=== PATIENT | female | born 1945 | race African-American/Black ===

== ENCOUNTER 2016-06-20 19:13 | Emergency (ER) | payer MEDICARE ==
[~2016-06-20] VITALS: Ht 160 cm; Wt 112.5 kg
[2016-06-20] MEDS ORDERED: KETOROLAC 15 MG/ML VIAL. IV ONE (22:00)
[2016-06-20] MEDS ORDERED: FENTANYL PF 100 MCG/2 ML VIAL. IV ONE (22:00)
[2016-06-20 22:13] LABS: BASO # 0.1 x10^3/uL (0.0-0.2); BASO % 1 % (0-3); EOS % 3 % (0-3); HEMATOCRIT 33.7 % (36.0-47.0); LYMPH # 2.9 x10^3/uL (1.0-4.8); LYMPH % 28 % (24-48); MEAN CORPUSCULAR HEMOGLOBIN 29 pg (25-35); MEAN CORPUSCULAR HGB CONC 33 g/dL (31-37); MEAN CORPUSCULAR VOLUME 88 fL (79-100); MONO % 9 % (0-9); NEUT % 59 % (31-73); PLATELET COUNT 352 x10^3/uL (140-400); RED BLOOD COUNT 3.84 x10^6/uL (3.50-5.40); RED CELL DISTRIBUTION WIDTH 15.6 % (11.5-14.5); WHITE BLOOD COUNT 10.4 x10^3/uL (4.0-11.0)
[2016-06-20 22:30] VITALS: BP 103/58
[2016-06-20 22:31] LABS: CALCIUM 8.7 mg/dL (8.5-10.1); CREATININE 1.6 mg/dL (0.6-1.0); GFR 38.4; POTASSIUM 4.3 mmol/L (3.5-5.1)
[2016-06-20] MEDS ORDERED: CYCL5TAB PO (22:52)
--- NOTE | 2016-06-20 22:52 | PHYS DOC ---
Past Medical History Past Medical History: Arthritis, Diabetes-Type II, Hypertension, Other Additional Past Medical Histor: neuropathy Past Surgical History: No Surgical History Alcohol Use: None Drug Use: None Adult General Chief Complaint Chief Complaint: COUGH HPI HPI Patient is a 71 year old female who presents with family for left upper chest and shoulder pain for the past 2 weeks that started after an episode of cough with post-tussive emesis. States she has intermittent nbnb post-tussive emesis. Pain is achy/burning/tingling and worse with shoulder ROM. She denies other injury, numbness, weakness, headache, dyspnea, diarrhea, f/c, rash, headache. Review of Systems Review of Systems Constitutional: Denies fever or chills [] Eyes: Denies change in visual acuity, redness, or eye pain [] HENT: Denies nasal congestion or sore throat [] Respiratory: Denies shortness of breath [] Cardiovascular: No additional information not addressed in HPI [] GI: Denies abdominal pain, bloody stools or diarrhea [] : Denies dysuria or hematuria [] Musculoskeletal: Denies back pain or joint pain [] Integument: Denies rash or skin lesions [] Neurologic: Denies headache, focal weakness or sensory changes [] Endocrine: Denies polyuria or polydipsia [] Current Medications Current Medications Current Medications Medications (Trade) Dose Ordered Sig/Leyda Start Time Stop Time Status Last Admin Dose Admin Fentanyl Citrate (Fentanyl 2ml Vial) 25 mcg 1X ONCE 06/20/16 22:00 06/20/16 22:01 DC 06/20/16 22:22 25 MCG Ketorolac Tromethamine (Toradol) 10 mg 1X ONCE 06/20/16 22:00 06/20/16 22:01 DC 06/20/16 22:22 10 MG Allergies Allergies Allergies Coded Allergies Type Severity Reaction Last Updated Verified Penicillins Allergy Intermediate Rash 06/20/16 Yes Sulfa (Sulfonamide Antibiotics) Allergy Intermediate Rash 06/20/16 Yes Physical Exam Physical Exam Constitutional: Well developed, well nourished, no acute distress, non-toxic appearance. [] HENT: Normocephalic, atraumatic, bilateral external ears normal, oropharynx moist, no oral exudates, nose normal. [] Eyes: PERRLA, EOMI. [] Neck: Normal range of motion, no tenderness, supple. [] Cardiovascular:Heart rate regular rhythm [] Lungs & Thorax: Bilateral breath sounds clear to auscultation. Tenderness through left upper chest and trapezius muscle and deltoid duplicating symptoms; no palpable or visual abnormality [] Abdomen: Bowel sounds normal, soft, no tenderness. [] Skin: Warm, dry, no erythema, no rash. [] Back: No tenderness, no CVA tenderness. [] Extremities: No tenderness, ROM intact, no edema. Equal radial pulses [] Neurologic: Alert and oriented X 3, normal motor function, normal sensory function, no focal deficits noted. [] Psychologic: Affect normal, judgement normal, mood normal. [] Current Patient Data Vital Signs Vital Signs Date Time Temp Pulse Resp B/P Pulse Ox O2 Delivery O2 Flow Rate FiO2 06/20/16 22:30 62 12 103/58 99 Room Air 06/20/16 19:33 98.2 98.2 Lab Values Laboratory Tests Test 06/20/16 22:00 White Blood Count 10.4x10^3/uL (4.0-11.0) Red Blood Count 3.84x10^6/uL (3.50-5.40) Hemoglobin 11.0g/dL (12.0-15.5) L Hematocrit 33.7% (36.0-47.0) L Mean Corpuscular Volume 88fL (79-100) Mean Corpuscular Hemoglobin 29pg (25-35) Mean Corpuscular Hemoglobin Concent 33g/dL (31-37) Red Cell Distribution Width 15.6% (11.5-14.5) H Platelet Count 352x10^3/uL (140-400) Neutrophils (%) (Auto) 59% (31-73) Lymphocytes (%) (Auto) 28% (24-48) Monocytes (%) (Auto) 9% (0-9) Eosinophils (%) (Auto) 3% (0-3) Basophils (%) (Auto) 1% (0-3) Neutrophils # (Auto) 6.1x10^3uL (1.8-7.7) Lymphocytes # (Auto) 2.9x10^3/uL (1.0-4.8) Monocytes # (Auto) 0.9x10^3/uL (0.0-1.1) Eosinophils # (Auto) 0.3x10^3/uL (0.0-0.7) Basophils # (Auto) 0.1x10^3/uL (0.0-0.2) Sodium Level 138mmol/L (136-145) Potassium Level 4.3mmol/L (3.5-5.1) Chloride Level 102mmol/L (98-107) Carbon Dioxide Level 26mmol/L (21-32) Anion Gap 10 (6-14) Blood Urea Nitrogen 18mg/dL (7-20) Creatinine 1.6mg/dL (0.6-1.0) H Estimated GFR (Cockcroft-Gault) 38.4 Glucose Level 101mg/dL (70-99) H Calcium Level 8.7mg/dL (8.5-10.1) Troponin I Quantitative < 0.017ng/mL (0.000-0.055) Laboratory Tests 06/20/16 22:00 Laboratory Tests 06/20/16 22:00 EKG EKG EKG as interpreted by me as sinus rhythm with first-degree AV block, rate 70, no ST-T changes, P-R 206, QTC 520, no ectopy Radiology/Procedures Radiology/Procedures Chest xray as interpreted by me with no acute cardiopulmonary disease process Course & Med Decision Making Course & Med Decision Making Pertinent Labs and Imaging studies reviewed. (See chart for details) Workup is unremarkable. Discussed symptom control. Return precautions given. She understands and agrees with plan. Dragon Disclaimer Dragon Disclaimer This electronic medical record was generated, in whole or in part, using a voice recognition dictation system. Departure Departure Impression: Primary Impression: Cough Additional Impression: Chest pain Disposition: 01 HOME, SELF-CARE Condition: STABLE Referrals: UNKNOWN PCP NAME (PCP) Patient Instructions: Chest Wall Pain, [id number] Additional Instructions: Take Tylenol or ibuprofen as needed for pain. Take cyclobenzaprine as needed for muscle spasm. Do not drink, drive or operate heavy machinery after taking cyclobenzaprine as it will likely make you sleepy. Follow-up with your primary care doctor within one week. Return for any concerns. Scripts Cyclobenzaprine Hcl 5 Mg Tablet1 Tab PO QHS PRN MUSCLE SPASMS #8 TAB Prov:Rhina PHOENIX MD 06/20/16 Problem Qualifiers Additional Impression: Chest pain Chest pain type: unspecified Qualified Code: R07.9 - Chest pain, unspecified Rhina PHOENIX MD Jun 20, 2016 22:52
--- NOTE | 2016-06-21 00:28 | EKG ---
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
--- NOTE | 2016-06-21 09:01 | RAD ---
Chest, 2 views, 06/20/2016: History: Cough and left-sided pain Comparison is made to a study from 04/21/2016. The heart is at the upper limits of normal in size. The pulmonary vascularity is normal. No pulmonary consolidation is seen. There is no evidence of pleural fluid. Moderate spurring is present in the spine. IMPRESSION: No acute cardiopulmonary abnormality is detected.
== END 2016-06-20 23:03 | disposition home or self-care (01) ==
LOC: ER 19:13
DX: R05 Cough (principal); R07.89 Other chest pain; R11.10 Vomiting, unspecified; M25.512 Pain in left shoulder; E11.40 Type 2 diabetes mellitus with diabetic neuropathy, unspecified; I10 Essential (primary) hypertension; M19.90 Unspecified osteoarthritis, unspecified site; Z88.0 Allergy status to penicillin; Z88.2 Allergy status to sulfonamides
CPT/HCPCS: 36415; 71020; 80048; 84484; 85027; 93005; 96374; 96375; 99285; J1885; J3010

== ENCOUNTER 2020-05-26 19:46 | Emergency (ER) | payer MEDICARE ==
[~2020-05-26] VITALS: Ht 160 cm; Wt 113.6 kg
[~2020-05-26 19:46] MED LIST: CYCL5TAB PO
--- NOTE | 2020-05-26 19:59 | PHYS DOC ---
Past Medical History Past Medical History: Arthritis, Diabetes-Type II, Hypertension, Other Additional Past Medical Histor: neuropathy Past Surgical History: No Surgical History Smoking Status: Never Smoker Alcohol Use: None Drug Use: None General Adult EDM: Chief Complaint: CHEST PAIN HPI: HPI: Patient is a 75-year-old female presenting for chest pain. Onset was approximately 1 week ago without any known inciting event, trauma or ingestion. Rest makes better, physical activity and movement of left upper extremity makes worse. Patient reports focal pain "that hurts when you press on it" inferior to left clavicle with radiation to left upper extremity. Pain is described as sharp in nature. Timing of symptoms has been intermittent since onset but increasing in frequency. She has no prior cardiac history, takes 81 mg aspirin daily without any other anticoagulants/blood thinners. She has longstanding history of arthritis and musculoskeletal complaints. She has a primary care physician in local area, has not followed up regarding this Review of Systems: Review of Systems: Fourteen body systems of review of systems have been reviewed. See HPI for pertinent positives and negative responses, other trevizo all other systems are negative, non-pertinent or non-contributory Heart Score: C/O Chest Pain: Yes HEART Score for Chest Pain: HEART Score for Chest Pain Response (Comments) Value History Slighlty/Non-Suspicious 0 ECG Nonspecific Repolarizatio 1 Age > 65 2 Risk Factors 1 or 2 Risk Factors 1 Total 4 Risk Factors: Risk Factors: DM, Current or recent (<one month) smoker, HTN, HLP, family history of CAD, obesity. Risk Scores: Score 0 - 3: 2.5% MACE over next 6 weeks - Discharge Home Score 4 - 6: 20.3% MACE over next 6 weeks - Admit for Clinical Observation Score 7 - 10: 72.7% MACE over next 6 weeks - Early Invasive Strategies Allergies: Allergies: Allergies Coded Allergies Type Severity Reaction Last Updated Verified Penicillins Allergy Intermediate Rash 06/20/16 Yes Sulfa (Sulfonamide Antibiotics) Allergy Intermediate Rash 06/20/16 Yes Physical Exam: PE: Constitutional: Well developed, well nourished, no acute distress, non-toxic appearance. HENT: Normocephalic, atraumatic, bilateral external ears normal, oropharynx moist, no oral exudates, nose normal. Eyes: PERRLA, EOMI, conjunctiva normal, no discharge. Neck: Normal range of motion, no tenderness, supple, no stridor. Cardiovascular: Heart rate regular, sinus rhythm, no murmurs rubs or gallops Lungs & Thorax: Bilateral breath sounds clear to auscultation Abdomen: Bowel sounds normal, soft, no tenderness, no masses, no pulsatile masses. Nonsurgical abdomen, no peritoneal signs Skin: Warm, dry, no erythema, no rash. Back: No tenderness, no CVA tenderness. Extremities: No cyanosis, no clubbing, no edema. Tenderness present to left pectoral muscle with reproducing symptoms consistent with HPI chest pain. Patient has 5/5 muscle strength of left upper extremity but cites decreased active and passive range of motion due to pain. Radial pulses of bilateral upper extremities equal and 2+, cap refill less than 3 seconds in all digits Neurologic: Alert and oriented X 3, grossly normal motor & sensory function, no focal deficits noted. Psychologic: Anxious affect and mood Current Patient Data: Labs: Laboratory Tests Test 05/26/20 19:55 White Blood Count 10.1 x10^3/uL Red Blood Count 4.54 x10^6/uL Hemoglobin 12.6 g/dL Hematocrit 38.3 % Mean Corpuscular Volume 85 fL Mean Corpuscular Hemoglobin 28 pg Mean Corpuscular Hemoglobin Concent 33 g/dL Red Cell Distribution Width 14.7 % Platelet Count 324 x10^3/uL Neutrophils (%) (Auto) 64 % Lymphocytes (%) (Auto) 23 % Monocytes (%) (Auto) 10 % Eosinophils (%) (Auto) 2 % Basophils (%) (Auto) 1 % Neutrophils # (Auto) 6.5 x10^3/uL Lymphocytes # (Auto) 2.3 x10^3/uL Monocytes # (Auto) 1.0 x10^3/uL Eosinophils # (Auto) 0.2 x10^3/uL Basophils # (Auto) 0.1 x10^3/uL Sodium Level 139 mmol/L Potassium Level 3.2 mmol/L Chloride Level 100 mmol/L Carbon Dioxide Level 32 mmol/L Anion Gap 7 Blood Urea Nitrogen 12 mg/dL Creatinine 1.6 mg/dL Estimated GFR (Cockcroft-Gault) 38.0 BUN/Creatinine Ratio 8 Glucose Level 133 mg/dL Calcium Level 8.7 mg/dL Total Bilirubin 0.3 mg/dL Aspartate Amino Transf (AST/SGOT) 15 U/L Alanine Aminotransferase (ALT/SGPT) 12 U/L Alkaline Phosphatase 70 U/L Troponin I Quantitative < 0.017 ng/mL XC-Mof-U-Type Natriuretic Peptide 471 pg/mL Total Protein 9.1 g/dL Albumin 2.9 g/dL Albumin/Globulin Ratio 0.5 Current Medications Medications (Trade) Dose Ordered Sig/Leyda Route PRN Reason Start Time Stop Time Status Last Admin Dose Admin Aspirin (Aspirin Chewable) 162 mg 1X ONCE PO 05/26/20 20:15 05/26/20 20:16 DC 05/26/20 20:25 Potassium Chloride (Klor-Con) 40 meq 1X ONCE PO 05/26/20 20:45 05/26/20 20:46 DC 05/26/20 20:56 Vital Signs: Vital Signs Date Time Temp Pulse Resp B/P (MAP) Pulse Ox O2 Delivery O2 Flow Rate FiO2 05/26/20 21:10 77 136/71 (92) 94 Room Air 05/26/20 21:00 80 185/73 (110) 94 Room Air 05/26/20 20:30 82 143/65 (91) 94 Room Air 05/26/20 19:46 99.4 82 20 150/70 (96) 94 Room Air 99.4 EKG: EKG: EKG ordered and interpreted by myself at 1955 hrs. as sinus rhythm at 83 bpm, unremarkable intervals, no axis deviation, no acute ischemic findings, no STEMI Repeat EKG ordered and interpreted by myself at 2030 hrs. as sinus rhythm at 82 bpm, unremarkable intervals, no axis deviation, no acute ischemic findings, no STEMI Radiology/Procedures: Radiology/Procedures: PROCEDURE: PORTABLE CHEST 1V Single view chest dated 05/26/2020. Comparison made to 06/20/2016. Clinical data indication: Chest pain and cough. FINDINGS: Prior single upright portable exam performed. Heart and mediastinal contours are stable. There is some prominent perihilar linear markings, similar to prior study. No consolidation or pleural effusion. No pneumothorax. Elevation of right hemidiaphragm. IMPRESSION: 1. No acute radiographic abnormality. Stable findings compared to 06/20/2016 Electronically signed by: Mo Carrera MD (05/26/2020 8:22 PM) [facility] Course & Med Decision Making: Course & Med Decision Making Hemodynamically stable with HPI and physical exam consistent with reproducible chest wall pain. No prior history of cardiac disease, no prior pulmonary embolism/DVT, well's negative Comprehensive work-up performed in ER and grossly nonconcerning. I reviewed heart score with patient and her risk factors. I discussed utility in cardiac observation and recommended this but she declined. Alternative plan of care pursued, patient to be discharged home with close outpatient follow-up and continued supportive care advised for reproducible chest wall pain concerning for costochondritis versus pectoral muscle strain versus other musculoskeletal dysfunction I did disclose this might be an acute presentation of more concerning pathology and so, close outpatient follow-up for repeat evaluation was vital. Patient has previously prescribed [place] 5 that she takes sparingly for severe pain, I advised her to take this and utilize heating pads with stretching daily Strict return precautions were discussed with good understanding by patient, all questions and concerns addressed prior to ER departure Critical Care Time This patient required critical care. Due to the fact that the patient required a significant amount of one on one physician - patient contact time, ordering and review of studies, arranging urgent treatment with development of a management plan, evaluation of patients response to treatment with frequent reassessments, and discussions with other providers this patient required 35 minutes of critical care time. Critical care time was indicated due to the inherent instability and/or potential for instability in this patient. The critical care time that is allocated to this patient is above and beyond any time spent on any other billable procedures performed on this patient. Shashank Disclaimer: Shashank Disclaimer: This electronic medical record was generated, in whole or in part, using a voice recognition dictation system. Departure Departure Impression: Primary Impression: Left-sided chest wall pain Disposition: 01 DC HOME SELF CARE/HOMELESS Condition: STABLE Referrals: UNKNOWN PCP NAME (PCP) Patient Instructions: Chest Wall Pain Additional Instructions: You were seen for chest pain. Your workup did not show any acute abnormalities today, but does not indicate that you do not have underlying cardiovascular disease. As discussed, your pain was reproducible and likely musculoskeletal in nature. Please continue supportive care practices in outpatient setting. Please call your primary care physician first thing in the morning to review your ER visit today, there might be indication for outpatient physical therapy referral versus other specialist referral if your symptoms do not improve. You should return to the ED if you develop worsening chest pain, shortness of breath, fever, abnormal sweating, leg swelling, or any other new or concerning symptoms. ROGER ANSARI DO May 26, 2020 19:59
--- NOTE | 2020-05-26 20:03 | EKG ---
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
[2020-05-26 20:11] LABS: BASO # 0.1 x10^3/uL (0.0-0.2); BASO % 1 % (0-3); EOS # 0.2 x10^3/uL (0.0-0.7); EOS % 2 % (0-3); HEMATOCRIT 38.3 % (36.0-47.0); HEMOGLOBIN 12.6 g/dL (12.0-15.5); LYMPH # 2.3 x10^3/uL (1.0-4.8); LYMPH % 23 % (24-48); MEAN CORPUSCULAR HEMOGLOBIN 28 pg (25-35); MEAN CORPUSCULAR HGB CONC 33 g/dL (31-37); MEAN CORPUSCULAR VOLUME 85 fL (79-100); MONO % 10 % (0-9); NEUT # 6.5 x10^3/uL (1.8-7.7); NEUT % 64 % (31-73); PLATELET COUNT 324 x10^3/uL (140-400); RED BLOOD COUNT 4.54 x10^6/uL (3.50-5.40); RED CELL DISTRIBUTION WIDTH 14.7 % (11.5-14.5); WHITE BLOOD COUNT 10.1 x10^3/uL (4.0-11.0)
[2020-05-26] MEDS ORDERED: ASPIRIN CHEWABLE 81 MG TABLET. PO ONE (20:15)
[2020-05-26 20:24] LABS: CALCIUM 8.7 mg/dL (8.5-10.1); CREATININE 1.6 mg/dL (0.6-1.0); POTASSIUM 3.2 mmol/L (3.5-5.1)
--- NOTE | 2020-05-26 20:25 | RAD ---
Single view chest dated 05/26/2020. Comparison made to 06/20/2016. Clinical data indication: Chest pain and cough. FINDINGS: Prior single upright portable exam performed. Heart and mediastinal contours are stable. Th ere is some prominent perihilar linear markings, similar to prior study. No consolidation or pleural effusion. No pneumothorax. Elevation of right hemidiaphragm. IMPRESSION: 1. No acute radiographic abnormality. Stable findings compared to 06/20/2016 Electronically signed by: Mo Carrera MD (05/26/2020 8:22 PM) [facility]
[2020-05-26 20:30] LABS: ALBUMIN 2.9 g/dL (3.4-5.0); ALBUMIN/GLOBULIN RATIO 0.5 (1.0-1.7); TOTAL BILIRUBIN 0.3 mg/dL (0.2-1.0); TOTAL PROTEIN 9.1 g/dL (6.4-8.2)
[2020-05-26] MEDS ORDERED: POTASSIUM CHLORIDE 20 MEQ TABLET.ER. PO ONE (20:45)
--- NOTE | 2020-05-26 20:45 | EKG ---
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
[2020-05-26 21:10] VITALS: BP 136/71
== END 2020-05-26 21:10 | disposition home or self-care (01) ==
LOC: ER 19:46
DX: R07.89 Other chest pain (principal); M19.90 Unspecified osteoarthritis, unspecified site; I10 Essential (primary) hypertension; E11.40 Type 2 diabetes mellitus with diabetic neuropathy, unspecified; Z88.0 Allergy status to penicillin; Z88.2 Allergy status to sulfonamides
CPT/HCPCS: 36415; 71045; 80053; 83880; 84484; 85025; 93005; 99285